=== PATIENT | female | born 1970 | race Caucasian/White ===

== ENCOUNTER 2017-09-27 08:56 | Day surgery (SDC) | payer OTHER ==
--- NOTE | 2017-09-27 08:55 | HP ---
DATE OF SURGERY: 09/27/2017 HISTORY OF PRESENT ILLNESS: The patient is a 47 year-old since January some right upper quadrant pain, after soft stool right upper quadrant pain. No vomiting but nausea. Intermittent flare ups most recently. No prior endoscopy. 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 PAST MEDICAL HISTORY: Diabetes. Arthritis. Lung disease as well she has seen Dr. Fletcher in the past. PAST SURGICAL HISTORY: Tubal. MEDICATIONS: Apidra, Breo Ellipta, carvedilol, duloxetine, Fenofibrate, hydrocodone, Jardiance, Lyrica, Naprosyn, omeprazole, simvastatin, vitamin B6, valsartan, Ventolin. ALLERGIES: NKDA. FAMILY HISTORY: Heart disease, diabetes, hypertension, cancer. SOCIAL HISTORY: No smoking or alcohol abuse. REVIEW OF SYSTEMS: Twelve systems reviewed per admission assessment. No chest pain or palpitations other systems negative or noncontributory as above and per preadmission questionnaire. PHYSICAL EXAMINATION: GENERAL: No acute distress. HEENT: Sclerae nonicteric. NECK: No JVD. CHEST: Equal excursion, nonlabored breathing. CVS: Regular rate and rhythm. ABDOMEN: Soft. No peritoneal signs. EXTREMITIES: No significant edema. NEURO: Alert, oriented, moving extremities symmetrically. No gross motor deficits noted. IMPRESSION: Question of sludge or soft stone in the gallbladder, question chronic cholecystitis. I feel she would benefit from cholecystectomy. Risks and benefits explained in detail, shown the gallbladder pamphlet, risk sheet, explained the procedure in detail but not limited to bleeding or infection, risk of trocar injury or hernia, small risk of bowel, bladder or blood vessel injury, small risk of bile leak, bile duct injury, retained stone or sludge possibly requiring further procedure either open or ERCP, general risk of anesthesia, deep venous thrombosis, pulmonary embolism, pneumonia, perioperative risk of aches, pains, bloating, constipation and/or loose stools possibly chronic in nature. General risk of anesthesia, deep venous thrombosis, pulmonary embolism or pneumonia, possibility that this procedure may not improve her symptoms she may need further work up and/or testing, endoscopy, other studies or procedures. She understands and agrees to the planned procedure, risk of possible open procedure. Will proceed with laparoscopic cholecystectomy, possible open as an outpatient.
[~2017-09-27 08:56] MED LIST: BRIDION 200MG/2ML IV ONE; DIPRIVAN 200 MG/20 ML IV ONE; Decadron 4 MG INJ IV ONE; Lactated Ringers 1,000 ML IV ONE; Lactated Ringers 1,000 ML IV SCH; MEFOXIN 2 GM PREMIX** 2 GM/50 ML ML IV ONE; Quelicin Fliptop 200 MG/10 ML IV ONE; SUBLIMAZE 100 MCG/2 ML IV ONE; Sensorcaine 0.25% 10 ML ONE; TORAdol 30 mg Injection IV ONE; Zemuron 100 MG/10 ML IV ONE; Zofran 4 MG/2 ML VIAL IV ONE
[2017-09-27] MEDS ORDERED: MEFOXIN 2 GM PREMIX** 2 GM/50 ML ML IV ONE (09:09)
[2017-09-27] MEDS ORDERED: Lactated Ringers 1,000 ML IV ONE (09:09)
[2017-09-27 09:37] VITALS: O2SAT 96
[2017-09-27] MEDS ORDERED: DILAUDID 2 MG INJECTION ONE (11:49)
[2017-09-27 12:28] VITALS: BP 152/87; PULSE 75
--- NOTE | 2017-09-27 15:43 | OP ---
SURGERY DATE/TIME: 09/27/2017 1057 PREOPERATIVE DIAGNOSIS: Symptomatic sludge or soft stone, chronic cholecystitis. POSTOPERATIVE DIAGNOSIS: Symptomatic sludge or soft stone, chronic cholecystitis. PROCEDURE: Laparoscopic cholecystectomy. SURGEON: Dr. Bobby Farr. FLIGHT PARAMEDIC: James Moody, Medical Student III. ANESTHESIA: General. ESTIMATED BLOOD LOSS: Minimal. INDICATIONS: As noted above. Risks and benefits explained in detail but not limited to and consent obtained. DESCRIPTION OF PROCEDURE AND FINDINGS: The patient was taken to the OR. General anesthesia induced. Abdomen prepped and draped in the usual sterile fashion. After official time out and no disagreement with planned procedure, a transverse incision made at the supraumbilical area. Fascia grasped and pulled upward. Veress needle inserted and tested with saline. Pneumoperitoneum accomplished insufflating opening pressure of 0-15. An 11 mm bladeless port and camera inserted without difficulty followed by two - 5 mm right upper quadrant ports and 5 mm epigastric portion. The gallbladder grasped and retracted over the edge of the liver. Had some chronic inflammatory reaction. Slowly and carefully dissected posterior-lateral to anterior fashion. Slowly and carefully main cystic artery, cystic duct, infundibular junction slowly and carefully well skeletonized until critical view obtained both anteriorly and posteriorly. Once this is accomplished the cystic artery and cystic duct were then clipped x3 and divided in usual fashion of some oozing side branches off the cystic artery that were clipped directly on the gallbladder wall as necessary. The gallbladder is slowly and carefully dissected free. Just prior to releasing from final attachment there was one oozing vein in the anterior edge of the liver that was also clipped. Just prior to releasing from final attachments clipped noted to be in place in cystic duct and cystic artery stumps. There were no signs of any active bleeding or bile leakage. It was felt there was no benefit from drain placement. The gallbladder is released from final attachments to anterior edge of the liver placed in Ple[place]man sac pulled up and out the 11 supraumbilical port and passed off. At this point fascial defect closed with puncture closure device with #1 Vicryl. Copious amount of irrigation accomplished lateral to the liver and subhepatic space until clear. Clips noted in place in cystic duct and cystic artery stumps. There were no signs of any active bleeding or bile leakage. It was felt there is no benefit from drain placement. At this point the pneumoperitoneum decompressed. The wound was irrigated out. Skin incision closed with 4-0 Vicryl. Steri-Strips and sterile dressing applied. 0.25% Marcaine local injected along the skin incision fascial defect. The patient tolerated the procedure well. There were no immediate complications. Findings discussed with the family out in the waiting area.
== END 2017-09-27 13:12 | disposition home or self-care (01) ==
LOC: SDC 08:56
PROVIDERS: ATTEND Surgery
DX: K81.1 Chronic cholecystitis (principal); E11.9 Type 2 diabetes mellitus without complications; M19.90 Unspecified osteoarthritis, unspecified site; J98.4 Other disorders of lung
CPT/HCPCS: 88304; 93005; 94250; J0330; J0694; J1100; J1170; J1885; J2405; J2704; J3010